=== PATIENT | male | born 1985 | race Caucasian/White ===

== ENCOUNTER → 2021-01-01 06:59 | Outpatient (CLI) | payer OTHER, SELFPAY ==
[2021-01-01 18:17] LABS: SARS-CoV-2 RNA PCR Negative
== END ==
PROVIDERS: PCP Family Medicine; Visit Provider Family Medicine
DX: R50.9 Fever, unspecified (principal); Z20.822 Contact with and (suspected) exposure to COVID-19
CPT/HCPCS: C9803; U0003; U0005

== ENCOUNTER → 2021-11-01 02:19 | Outpatient (CLI) | payer OTHER, SELFPAY ==
[2021-11-01 16:40] LABS: SARS-CoV-2 RNA PCR Positive
== END ==
PROVIDERS: PCP Family Medicine; Visit Provider Family Medicine
DX: U07.1 COVID-19 (principal); J06.9 Acute upper respiratory infection, unspecified
CPT/HCPCS: C9803; U0003; U0005

== ENCOUNTER 2022-07-05 08:07 | Emergency (ER) | payer OTHER, SELFPAY ==
--- NOTE | ~2022-07-05 | XR_ITS ---
EXAMINATION: XR shoulder LT min 2V INDICATION: Generalized left shoulder pain TECHNIQUE: Four views of the left shoulder are submitted. COMPARISON: 08/28/2003 FINDINGS: Normal alignment. No fracture. There is mild osteoarthritis of the glenohumeral joint. The acromioclavicular joint is unremarkable. Soft tissues are unremarkable. IMPRESSION: 1. Mild osteoarthritis of the glenohumeral joint without acute osseous abnormality. Reviewed, dictated and finalized at location [facility]. [employer] IMPRESSION: 1. Mild osteoarthritis of the glenohumeral joint without acute osseous abnormal ity.
[2022-07-05 08:15] VITALS: BP 146/89; PULSE 78; RESP 18; TEMP 36.6; O2SAT 100
--- NOTE | 2022-07-05 08:38 | ED.UPPEXIN ---
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 Related Data Allergies Allergy/AdvReac Type Severity Reaction Status Date / Time No Known Allergies Allergy Unknown Unverified 10/26/19 12:59 Review of Systems Review of Systems: M/S: Left shoulder pain SKIN: No rash. NEURO: [No focal numbness or weakness] [facility] Past Medical History Medical History (Updated 07/05/22 @ 09:10 by Tea Toledo MD) Shoulder dislocation Surgical History Surgical History (Updated 07/05/22 @ 08:40 by Tea Toledo MD) Status post repair of glenoid labrum Social History Social History (System 10/26/19 @ 12:59 by Kingsley Stern) Smoking status: Never smoker Alcohol intake: never Exam Narrative: EXAMINATION OF ORGAN SYSTEMS/BODY AREAS: Constitutional: Vital signs per nursing GENERAL:[No acute distress, non-toxic appearing.] HEAD: Normal with no signs of head trauma. EYES: EOMI, conjunctiva normal ENT: Hearing grossly intact LUNGS: Nonlabored breathing. HEART: [Regular rate and rhythm] ABD: [Soft], [nontender to palpation] EXT: Pain with greater than 45 degrees of extension or forward flexion of left shoulder, some tenderness to posterior shoulder, neurovascularly intact with good pulses SKIN: [No rashes or lesions.] NEURO: [Alert and oriented x 3. No gross focal sensory or strength deficits.] PSYCH: Normal affect Course Vital Signs Vital signs: Vital Signs Temperature 97.8 F 07/05/22 08:15 Pulse Rate 78 07/05/22 08:15 Respiratory Rate 18 07/05/22 08:15 Blood Pressure 146/89 H 07/05/22 08:15 Pulse Oximetry 100 07/05/22 08:15 Oxygen Delivery Room Air 07/05/22 08:15 Temperature 97.8 F 07/05/22 08:15 Pulse Rate 78 07/05/22 08:15 Respiratory Rate 18 07/05/22 08:15 Blood Pressure 146/89 H 07/05/22 08:15 Pulse Oximetry 100 07/05/22 08:15 Oxygen Delivery Room Air 07/05/22 08:15 MDM - Extremity Injury (Upper) MDM Narrative Medical decision making narrative: 37-year-old male with shoulder pain for the last few days with history of recurrent dislocations status post repair, unsure of any obvious trauma other than some weightlifting before this started, on exam does have some tenderness to the posterior left shoulder, reproduction of pain with extension or forward flexion of shoulder, I will obtain x-ray to ensure no obvious deformity or dislocation, I suspect most likely soft tissue injury.. I did personally review imaging, did not any obvious abnormality, radiology interpretation no obvious deformity or abnormality, there is some arthritis. Patient is given follow-up with orthopedics and return precautions. We will try a steroid burst for arthritis/inflammation as well as NSAIDs. Cautioned to avoid heavy lifting. Patient agreeable with this plan. Discharge Plan Discharge Clinical Impression: Acute pain of left shoulder Patient Disposition: Home, Self-Care Condition: Stable Additional Instructions: Please follow up with the orthopedic surgeon; you can always return to the ER if symptoms worsen. Prescriptions: New prednisone 50 mg tablet 50 mg PO DAILY Qty: 4 0RF naproxen 250 mg tablet 250 mg PO BID PRN (Reason: pain) Qty: 20 0RF Follow-up/Referrals: Yusuf Fleming MD [Physician] - 2 Days Jack,MD Ricco [Primary Care Provider] -
[2022-07-05] MEDS: KETOROLAC 30 MG/ML VIAL (*BKC) IM (09:33)
[2022-07-05] MEDS: predniSONE 20 MG TABLET 40 MG PO (09:33)
== END 2022-07-05 09:52 | disposition home or self-care (01) ==
PROVIDERS: Emergency Provider Emergency Medicine; PCP Family Medicine
DX: M25.512 Pain in left shoulder (principal)
CPT/HCPCS: 73030; 96372; 99283; J1885; J7512